=== PATIENT | female | born 1955 | race Asian ===

== ENCOUNTER 2018-08-19 08:57 | Inpatient (IN) | payer MEDICAID ==
[2018-08-05 10:33] LABS: APPEARANCE,URINE CLEAR; BILIRUBIN, URINE NEGATIVE (NEGATIVE); COLOR,URINE PALE YELLOW; GLUCOSE, URINE (UA) NEGATIVE (NEGATIVE); KETONES,URINE NEGATIVE (NEGATIVE); LEUKOCYTE ESTERASE ,URINE 1+ (NEGATIVE); NITRITE,URINE NEGATIVE (NEGATIVE); PH,URINE 7 (4.5-8.0); PROTEIN,URINE NEGATIVE (NEGATIVE); UROBILINOGEN,URINE NORMAL MG/DL (0.0-1.0)
[2018-08-05 10:35] LABS: BASOPHILS % (AUTO) 1.4 % (0.0-2.0); EOSINOPHILS % (AUTO) 1.9 % (0.0-3.0); HEMATOCRIT 41.6 % (37.0-47.0); HEMOGLOBIN 13.5 G/DL (12.0-16.0); LYMPHOCYTES % (AUTO) 41.1 % (20.0-45.0); MEAN CORPUSCULAR VOLUME 93 FL (80-99); MONOCYTES % (AUTO) 6.8 % (1.0-10.0); NEUTROPHILS % (AUTO) 48.8 % (45.0-75.0); PLATELET COUNT 207 K/UL (150-450); RED BLOOD COUNT 4.47 M/UL (4.20-5.40); RED CELL DISTRIBUTION WIDTH 10.9 % (11.6-14.8); WHITE BLOOD COUNT 5.7 K/UL (4.8-10.8)
--- NOTE | 2018-08-05 11:27 | Diagnostic Imaging Report ---
Indication: Cough Comparison: None 2 views of the chest obtained. Findings: Cardiomediastinal silhouette and pulmonary vascularity are within normal limits for age. Aorta is mildly calcified. The diaphragmatic contour is smooth and costophrenic angles are sharp. No pleural effusions are identified. The bones are osteopenic. Impression: No acute disease
[2018-08-05 11:29] LABS: ANION GAP 5 mmol/L (5-15); BLOOD UREA NITROGEN 12 mg/dL (7-18); CALCIUM 9.1 MG/DL (8.5-10.1); CARBON DIOXIDE 31 MMOL/L (21-32); CHLORIDE 105 MMOL/L (98-107); CREATININE 0.6 MG/DL (0.55-1.30); POTASSIUM 3.8 MMOL/L (3.5-5.1); SODIUM 141 MMOL/L (136-145)
--- NOTE | 2018-08-05 14:45 | Cardiology Report ---
APPROVED REPORT EKG Measurement Heart [id number] Normal sinus rhythm Normal ECG
--- NOTE | 2018-08-14 13:15 | Pre-op HX & Phy Repo 2 SIG ---
SCHEDULED FOR SURGERY: August 19, 2018. HISTORY OF PRESENT ILLNESS: The patient is a 63-year-old female in overall good health with invasive ductal carcinoma of the left breast. The patient presented for screening mammogram, which revealed a 7 mm mass in the left breast at 12 o'clock 7 cm from the nipple. Core needle biopsy revealed invasive ductal carcinoma. HER2 receptor was negative. The patient was seen by Oncology and referred back for surgery with additional treatment pending final pathology including lymph node status. She is scheduled to undergo left breast partial mastectomy with preoperative needle localization and left axillary lymph node biopsy. PAST MEDICAL HISTORY MEDICATIONS: None. ALLERGIES: None. OPERATIONS: Total abdominal hysterectomy in 1996, ear surgery 2007, and appendectomy 2008. PHYSICAL EXAMINATION: VITAL SIGNS: The patient is 4 feet 9 inches and 125 pounds. HEENT: Within normal limits. LUNGS: Clear. HEART: Regular rhythm. BREASTS: There are no palpable masses in either breasts. The breasts are small to medium in size. There is no palpable axillary or supraclavicular lymphadenopathy on either side. ABDOMEN: Soft. PELVIC: Per primary care physician. RECTAL: Per primary care physician. EXTREMITIES: Without edema. NEUROLOGIC: Physiologic. IMPRESSION: Invasive ductal carcinoma, left breast with 7 mm mass seen on mammogram. PLAN: Full discussion has been had with the patient regarding the nature of her condition, the nature of surgery, indications, alternatives, options, and risks including bleeding, infection, distortion of shape, contour, appearance of breast and/or nipple, need for drain for axillary lymph node biopsy, neuralgia, etc. All questions have been answered. The patient understands and agrees to proceed. Trav Bear M.D. DR: KAYCEE JOB#: [id number] CC: PACO
[2018-08-19] VITALS (16 sets, daily range): BP systolic 97–131; BP diastolic 50–80
[~2018-08-19] VITALS: Ht 149.9 cm; Wt 54.9 kg
[~2018-08-19 08:57] MED LIST: MULTIVITAMINS1 EAC2 ORAL; VITAMIN D400 INTLU ORAL
[2018-08-19] MEDS ORDERED: EPINEPHrine 1mg/1ml Amp ONE (10:30)
[2018-08-19] MEDS ORDERED: NeoSporin Gu Irrig 1ml Amp IRRIG ONE (10:31)
[2018-08-19] MEDS ORDERED: Lidocaine 1% 10mg/ml/Epi 0.005mg/ml 30ml vial INJ ONE (10:31)
[2018-08-19] MEDS ORDERED: Bacitracin 50000 Units Vial ONE (10:31)
[2018-08-19] MEDS ORDERED: Bupivacaine 0.5% Inj 30 ml vial INJ ONE (10:31)
--- NOTE | 2018-08-19 11:42 | Pre-Procedure Note/Attestation ---
Pre-Procedure Note/Attestation Complete Prior to Procedure Planned Procedure: left Procedure Narrative: left breast partial mastectomy with left axillary lymph node biopsy Indications for Procedure Pre-Operative Diagnosis: invasive ductal carcinoma left breast Attestation I attest that I discussed the nature of the procedure; its benefits; risks and complications; and alternatives (and the risks and benefits of such alternatives ), prior to the procedure, with the patient (or the patient's legal sales representative supervisor). I attest that, if there was a reasonable possibility of needing a blood transfusion, the patient (or the patient's legal sales representative supervisor) was given the [facility] standardized written summary, pursuant to the Aubrey Frederika Blood Safety Act ([place] Health and Safety Code # 1645, as amended). I attest that I re-evaluated the patient just prior to the surgery and that there has been no change in the patient's H&P, except as documented below: none Trav Bear MD Aug 19, 2018 11:42
[2018-08-19] MEDS ORDERED: Propofol 200mg/20ml IV ONE (11:59)
[2018-08-19] MEDS ORDERED: Lidocaine 1% MPF 10mg/ml 5ml ONE (11:59)
[2018-08-19] MEDS ORDERED: Dexamethasone 4mg/ml vial ONE (11:59)
[2018-08-19] MEDS ORDERED: Sodium Chloride 10ml vial INJ ONE (11:59)
[2018-08-19] MEDS ORDERED: LR 1000ml ONE (12:00)
[2018-08-19] MEDS ORDERED: NS Irrig 1000ml ONE (12:00)
[2018-08-19] MEDS ORDERED: Sterile Water Irrig 1000ml IRRIG ONE (12:00)
[2018-08-19] MEDS ORDERED: fentaNYL 100 mcg/2 mL IV ONE (12:01)
[2018-08-19] MEDS ORDERED: Midazolam 2mg/2ml Inj ONE (12:01)
[2018-08-19] MEDS ORDERED: LR 1000ml 1,000 ML IVLG SCH (12:23)
--- NOTE | 2018-08-19 12:27 | Anethesia Preoperative Eval ---
Anesthesia Pre-op PMH/ROS General Date of Evaluation: Aug 19, 2018 Time of Evaluation: 12:01 Anesthesiologist: Ashwin ASA Score: ASA 2 Mallampati Score Class I : Soft palate, uvula, fauces, pillars visible Class II: Soft palate, uvula, fauces visible Class III: Soft palate, base of uvula visible Class IV: Only hard plate visible Mallampati Classification: Class II Surgeon: Marianela Diagnosis: Invasive ductal carcinoma, left breast with 7 mm mass seen on Surgical Procedure: L Breast Partial Mastectomy Anesthesia History: none Family History: no anesthesia problems Allergies: Coded Allergies: No Known Allergies (Unverified , 08/19/18) Medications: see eMAR Past Medical History Gastrointestinal/Genitourinary: Reports: GERD Hematology/Immune: Reports: other - Breast Cancer PSxH Narrative: Total abdominal hysterectomy in 1996, ear surgery 2007, and appendectomy 2008. Anesthesia Pre-op Phys. Exam Physician Exam Last Vital Signs Date Time Temp Pulse Resp B/P (MAP) Pulse Ox O2 Delivery O2 Flow Rate FiO2 08/19/18 09:23 Room Air 08/19/18 09:22 97.8 58 16 102/62 (75) 100 97.8 Constitutional: NAD Neurologic: CN 2-12 intact Cardiovascular: RRR Respiratory: CTA Gastrointestinal: S/NT/ND Airway Exam Mallampati Score: Class II MO: full ROM: full Teeth: missing, intact Anesthesia Pre-op A/P Risk Assessment & Plan Assessment: ASA 2 Plan: GA Status Change Before Surgery: No Pre-Antibiotics Dru Gram Ancef IV Given Within 1 Hr of Incision: Yes Time Given: 12:11 Nash Christopher MD Aug 19, 2018 12:27
[2018-08-19] MEDS ORDERED: fentaNYL 100 mcg/2 mL IV PRN (12:30)
[2018-08-19] MEDS ORDERED: DiphenhydrAMINE 50mg/ml Inj IVP PRN (12:30)
[2018-08-19] MEDS ORDERED: Acetaminophen (Non formulary) 100 ML IV ONE (12:30)
[2018-08-19] MEDS ORDERED: Hydromorphone 0.5mg/0.5ml inj IVP PRN (12:30)
[2018-08-19] MEDS ORDERED: Norco 5mg/325mg tab ORAL PRN (12:30)
[2018-08-19] MEDS ORDERED: Metoclopramide 10mg/2ml Inj IVP PRN (12:30)
[2018-08-19] MEDS ORDERED: LORazepam Inj 2mg/ml 1ml IV PRN (12:30)
[2018-08-19] MEDS ORDERED: Atropine Sulfate 0.4mg/ml inj IVP PRN (12:30)
[2018-08-19] MEDS ORDERED: oxyCODONE HCL/Acetaminophen 5/325mg ORAL PRN (12:30)
[2018-08-19] MEDS ORDERED: Ketorolac 30mg Inj IV PRN ×2 (12:30)
[2018-08-19] MEDS ORDERED: HYDROcodone/Acetamin 7.5/325 tab ORAL PRN (12:30)
[2018-08-19] MEDS ORDERED: Midazolam 2mg/2ml Inj IVP PRN (12:30)
[2018-08-19] MEDS ORDERED: Meperidine 50mg/ml Inj(FOR RIGORS ONLY) IVP PRN (12:30)
[2018-08-19] MEDS ORDERED: Labetalol 5mg/ml 20ml vial IV PRN (12:30)
--- NOTE | 2018-08-19 12:35 | Immediate Post-Op Evaluation ---
Immediate Post-Op Evalulation Immediate Post-Op Evalulation Procedure: L Breast Partial Mastectomy Date of Evaluation: Aug 19, 2018 Time of Evaluation: 14:05 IV Fluids: 750 LR Blood Products: 0 Estimated Blood Loss: 25 Urinary Output: 0 Blood Pressure Systolic: 125 Blood Pressure Diastolic: 71 Pulse Rate: 62 Respiratory Rate: 16 O2 Sat by Pulse Oximetry: 100 Temperature (Fahrenheit): 97 Pain Score (1-10): 2 Nausea: No Vomiting: No Complications 0 Patient Status: awake, reacts, patent, extubated, none Hydration Status: adequate Dru Gram Ancef IV Given Within 1 Hr of Incision: Yes Time Given: 12:11 Nash Christopher MD Aug 19, 2018 12:35
--- NOTE | 2018-08-19 13:52 | Brief Operative Note ---
Immediate Post Operative Note Operative Note Pre-op Diagnosis: invasive ductal carcinoma left breast Procedure: left breast partial mastectomy with pre-operative needle localization, and left axillary lymph node biopsy Post-op Diagnosis: same Post-op Diagnosis: same as pre-op Findings: consistent w/pre-op dx studies Surgeon: mario Anesthesiologist: meagan Specimen: yes - left breast cancer, left axillary lymph node Complications: none Condition: stable Fluids: see anesthesia record Estimated Blood Loss: minimal Drains: BEN Implant(s) used?: No Trav Bear MD Aug 19, 2018 13:52
--- NOTE | 2018-08-19 16:45 | Operative Note - Dictated ---
DATE OF OPERATION: 08/19/2018 SURGEON: Trav Bear M.D. VIOLIN TEACHER: None. ANESTHESIOLOGIST: Dr. Nash Christopher. TYPE OF ANESTHESIA: General. PREOPERATIVE DIAGNOSIS: Invasive ductal carcinoma, left breast. POSTOPERATIVE DIAGNOSIS: Invasive ductal carcinoma, left breast. OPERATION PERFORMED: Left breast partial mastectomy with left axillary lymph node biopsy and preoperative needle localization. DESCRIPTION OF PROCEDURE: The patient was taken to the operating room and under general anesthesia with sequential compression device stockings in place, she was prepped and draped in usual fashion incorporating the left upper extremity in the sterile field. The lesion was located at 12 o'clock approximately 7 cm from the nipple with the wire localization going through the lesion. A transverse curvilinear incision was made achieving hemostasis with cautery. Flaps were dissected circumferentially. The entire section of the tissues surrounding the lesion including the complete wire was resected down to the fascia of the pectoralis major muscle. The lesion was oriented with suture markers anterior, superior, and medial. The pathologist examined the tissue, stained it for margins, and margins appeared clear circumferentially. The field was irrigated with antibiotic solution and the incision closed with interrupted 3-0 Vicryl subcutaneous deep dermal sutures followed by 4-0 Monocryl subcuticular suture. Attention was then directed to the left axilla where a left axillary incision was made achieving hemostasis with cautery and incising the clavipectoral fascia. An abnormal lymph node was readily identified and was excised utilizing clips and 3-0 Vicryl ties, and cautery for hemostasis. Through a separate stab wound inferiorly, a 19-mm Chau drain was placed into the axilla and sutured to the skin with a 2-0 nylon suture. The field was irrigated with antibiotic solution. Hemostasis was secured. The axillary node was given to pathology. The incision was closed in layers with 2-0 and 3-0 Vicryl followed by continuous 4-0 Monocryl subcuticular suture. Tincture of benzoin and half-inch Steri-Strips were applied to both incisions followed by dry sterile dressings and a surgical brassiere. Final sponge and needle counts were correct. The patient tolerated the procedure well and left the operating room in good condition. Trav Bear M.D. DR: Franklin JOB#: [id number] CC: PACO
[2018-08-19] MEDS ORDERED: HYDROmorphone 1mg/ml Carpuject SUBQ PRN (17:00)
[2018-08-19] MEDS: D5 1/2NS w/KCl 20mEq 1,000 ML IV SCH (17:37)
[2018-08-19] MEDS: Norco 5mg/325mg tab ORAL PRN ×2 (17:50→22:22)
[2018-08-20 00:15] VITALS: BP 108/63
[2018-08-20 04:26] VITALS: BP 93/51
[2018-08-20] MEDS: D5 1/2NS w/KCl 20mEq 1,000 ML IV SCH (04:37)
[2018-08-20 08:00] VITALS: BP 106/65
[2018-08-20 08:07] VITALS: BP 93/51
--- NOTE | 2018-08-20 08:07 | 48 Hour Post Anesthesia Eval ---
Post Anesthesia Evaluation Procedure: L Breast Partial Mastectomy Date of Evaluation: Aug 20, 2018 Time of Evaluation: 06:30 Blood Pressure Systolic: 93 0: 51 Pulse Rate: 63 Respiratory Rate: 17 Temperature (Fahrenheit): 97.9 O2 Sat by Pulse Oximetry: 96 Airway: patent Nausea: No Vomiting: No Pain Intensity: 2 Hydration Status: adequate Cardiopulmonary Status: at baseline Mental Status/LOC: patient returned to baseline Post-Anesthesia Complications: 0 Follow-up care needed: N/A - further care as per primary team Melony Curtis MD Aug 20, 2018 08:07
--- NOTE | 2018-08-20 08:55 | General Progress Note ---
Progress Note Progress Note AVSS Has not ambulated in hallway yet - dizziness getting up to bathroom. IV fluids continued overnight Left breast and axillary incisions clean and dry with intact steristrips; no ecchymosis BEN drain 18ml serosang overnight Imp. Stable Plan: Discharge with BEN drain F/U 08/25 Rx [place] 5/325 #20 Instructions/limitations/supplies provided/discussed Trav Bear MD Aug 20, 2018 08:55
[2018-08-20] MEDS ORDERED: NORCO 5-325 TA1 EACH ORAL (09:37)
--- NOTE | 2018-08-21 06:46 | Discharge Summary ---
Discharge Summary Hospital Course Date of Admission Aug 19, 2018 at 15:30 Date of Discharge Aug 20, 2018 at 10:40 Admitting Diagnosis HPI The patient is a 63-year-old female in overall good health with invasive ductal carcinoma of the left breast. The patient presented for screening mammogram, which revealed a 7 mm mass in the left breast at 12 o'clock 7 cm from the nipple. Core needle biopsy revealed invasive ductal carcinoma. HER2 receptor was negative. The patient was seen by Oncology and referred back for surgery with additional treatment pending final pathology including lymph node status. She was admitted for left breast partial mastectomy with preoperative needle localization and left axillary lymph node biopsy. Procedures OPERATION PERFORMED: Left breast partial mastectomy with left axillary lymph node biopsy and preoperative needle localization. Hospital Course Patient was admitted on 08/19/18 and underwent left breast partial mastectomy with left axillary lymph node biopsy and pre-operative needle localization. She tolerated procedure well. IV fluid was discontinued. She was instructed on BEN drain care. She was ambulating well in the hallways. She was then cleared for discharge home. PREOPERATIVE DIAGNOSIS: Invasive ductal carcinoma, left breast. POSTOPERATIVE DIAGNOSIS: Invasive ductal carcinoma, left breast. Discharge Discharge Disposition Patient was discharged to Home (01) Karolina Tracey NP Aug 21, 2018 06:46
== END 2018-08-20 10:40 | disposition home or self-care (01) | DRG 362 ==
LOC: SDS 08:57 → EDSTATUS 12:00 → 3E 15:30
PROC: 07B60ZX Excision of Left Axillary Lymphatic, Open Approach, Diagnostic (ICD-10-PCS; 2018-08-19)
PROC: 0HTU0ZZ Resection of Left Breast, Open Approach (ICD-10-PCS; principal; 2018-08-19 12:00)
DX: C50.912 Malignant neoplasm of unspecified site of left female breast (principal); Z17.1 Estrogen receptor negative status [ER-]; Z90.710 Acquired absence of both cervix and uterus
CPT/HCPCS: 36415; 71046; 80048; 81001; 85025; 85610; 85730; 93005; 94003; 94150; J2250; J2405